=== PATIENT | male | born 1965 | race Caucasian/White ===

== ENCOUNTER → 2020-12-25 | Outpatient (REF) | payer BC ==
[2020-12-25 19:17] LABS: CREATININE, URINE 57.4 MG/DL; MALB URINE SIEMENS 6.4 MG/L; MAU/CREAT RATIO 11.1 MCG/MG (0.0-30.0)
== END ==
LOC: M LAB REF 17:02
PROVIDERS: ATTEND Nurse Practitioner Family
DX: E11.65 Type 2 diabetes mellitus with hyperglycemia (principal)

== ENCOUNTER → 2022-07-10 | Outpatient (REF) | payer BC ==
[2022-07-10 19:26] LABS: MALB URINE SIEMENS 32.7 MG/L; MAU/CREAT RATIO 51.9 MCG/MG (0.0-30.0)
== END ==
LOC: M LAB REF 16:43
PROVIDERS: ATTEND Nurse Practitioner Family
DX: E11.65 Type 2 diabetes mellitus with hyperglycemia (principal)

== ENCOUNTER 2022-11-06 07:42 | Day surgery (SDC) | payer BC ==
[~2022-11-06] VITALS: Ht 177.8 cm; Wt 99.8 kg
[~2022-11-06 07:42] MED LIST: BSS IRRIG/VANCO(10MG)/TOBRA(5MG)/EPINEPH(1:1000-0.5CC)500ML BAG-ORONLY IR ONE; CEFUROXIME 1MG/0.1ML INTRACAMERAL INJ As Ordered ONE; CYCLOPENTOLATE 1% OPHTH SOLN 2ML BTL OD SCH; ECOT81TA5 PO; GLIP10TA6 PO; HYDR12.55 PO; JARD1TAB3 PO; LIDOCAINE 1% SDV 5ML VIAL As Ordered ONE; LIDOCAINE 3.5 % 1ML OPHTH TOPICAL GEL OU ONE; LOSA100T45 PO; METF-838 PO; METO50TA7 PO; OFLOXACIN 0.3 % (OCUFLOX) OPTH SOL 5ML OD ONE; PHENYLEPHRINE 10% OPHTH SOL 5ML OD PRN; PHENYLEPHRINE 2.5% OPHTH SOL 2ML OD SCH; SIMV40TA20 PO; TOUJ300I2 SC; TROPICAMIDE 1% OPHTH SOLN 15ML OD SCH; TRUL0.5I SC
[2022-11-06] MEDS ORDERED: MIDAZOLAM INJ 2MG/2ML VIAL As Ordered ONE (08:20)
[2022-11-06] MEDS ORDERED: fentaNYL 100 MCG/2 ML INJECTION As Ordered ONE (08:21)
[2022-11-06 09:37] VITALS: BP 138/80
== END 2022-11-06 09:25 | disposition home or self-care (01) ==
LOC: M SDC 07:42
PROVIDERS: ATTEND Ophthalmology
DX: H25.11 Age-related nuclear cataract, right eye (principal); I10 Essential (primary) hypertension; E78.5 Hyperlipidemia, unspecified; E11.9 Type 2 diabetes mellitus without complications; F17.220 Nicotine dependence, chewing tobacco, uncomplicated; Z79.4 Long term (current) use of insulin; Z79.899 Other long term (current) drug therapy
CPT/HCPCS: 66984; 92015; J0697; J2250; J3010

== ENCOUNTER → 2023-07-24 | Outpatient (REF) | payer BC, OTHER ==
[~2023-07-24] MED LIST changes: -BSS IRRIG/VANCO(10MG)/TOBRA(5MG)/EPINEPH(1:1000-0.5CC)500ML BAG-ORONLY IR ONE; -CEFUROXIME 1MG/0.1ML INTRACAMERAL INJ As Ordered ONE; -CYCLOPENTOLATE 1% OPHTH SOLN 2ML BTL OD SCH; -LIDOCAINE 1% SDV 5ML VIAL As Ordered ONE; -LIDOCAINE 3.5 % 1ML OPHTH TOPICAL GEL OU ONE; -LOSA100T45 PO; +LOSA100T46 PO; -OFLOXACIN 0.3 % (OCUFLOX) OPTH SOL 5ML OD ONE; -PHENYLEPHRINE 10% OPHTH SOL 5ML OD PRN; -PHENYLEPHRINE 2.5% OPHTH SOL 2ML OD SCH; -TROPICAMIDE 1% OPHTH SOLN 15ML OD SCH
[2023-07-24 18:56] LABS: CREATININE, URINE 101.6 MG/DL
[2023-07-24 18:57] LABS: MAU/CREAT RATIO 3.9 MCG/MG (0.0-30.0)
== END ==
LOC: M LAB REF 17:12
PROVIDERS: ATTEND Internal Medicine Endocrinology, Diabetes & Metabolism
DX: E11.65 Type 2 diabetes mellitus with hyperglycemia (principal)